=== PATIENT | female | born 1960 | race Caucasian/White ===

== ENCOUNTER 2016-10-11 09:33 | Emergency (ER) | payer SELFPAY ==
[2016-10-11 10:07] VITALS: BP 131/87; TEMP 97.8; O2SAT 98
[2016-10-11] MEDS ORDERED: DEXAMETHASONE INJ 10 MG/ML VIAL IM ONE (10:35)
[2016-10-11] MEDS ORDERED: ORPHENADRINE CITRATE 30 MG/ML AMP IM ONE (10:35)
[2016-10-11] MEDS ORDERED: MORPHINE SULFATE INJ 10 MG/ML VIAL IM ONE (10:36)
--- NOTE | 2016-10-11 10:37 | ED.PDOC ---
History of Present Illness - General Chief Complaint: Lower Extremity Injury Stated Complaint: R leg discomfort Time Seen by Provider: 10/11/16 10:32 Source: patient Exam Limitations: no limitations - History of Present Illness Initial Comments: She stated that her condition started 5 days ago with right sided low back pain stabbing radiating down her back of right thigh Occurred: other - 5 days ago no history of trauma pain progressively getting worse no regular md Pain - Lower Extremity: moderate: Right Thigh/Hip Method of Injury: unknown Improving Factors: nothing Worsening Factors: other - walking standing Allergies/Adverse Reactions: Allergies NO KNOWN ALLERGY Allergy (Verified 10/11/16 09:52) Home Medications: Ambulatory Orders Gabapentin 300 mg PO BID #30 cap 10/11/16 Tramadol HCl 50 mg PO TID PRN #30 tab 10/11/16 predniSONE [Prednisone] 10 mg PO BID #20 tab 10/11/16 Past Medical History (General) - Patient Medical History Hx Stroke: No Hx Congestive Heart Failure: No Hx Diabetes: No - Vaccination History Hx Influenza Vaccination: No Hx Pneumococcal Vaccination: No - Social History Hx Tobacco Use: Yes - Female History Patient is a Female of Child Bearing Age (10 -59 yrs old): No Family Medical History - Family History Mother Family History: No Known Living Status: Hx Family Hypertension: Yes - dad Hx Family Diabetes: Yes - brother Hx Family Cancer: Yes - prostate dad Hx Family;Other: GI BLEED MOM- Physical Exam - Physical Exam General Appearance: Alert, Anxious, No apparent distress Eyes, Ears, Nose, Throat: PERRL/EOMI, normal ENT inspection, TMs normal, pharynx normal Neck: non-tender, full range of motion, supple, normal inspection Cardiovascular/Respiratory: regular rate, rhythm, no M/R/G, normal peripheral pulses, no JVD, normal breath sounds, no respiratory distress Gastrointestinal/Abdominal: non-tender, no organomegaly Back: normal inspection, no CVA tenderness, no vertebral tenderness Thigh/Hip: normal inspection, non-tender, no evidence of injury Leg: normal inspection, non-tender, no evidence of injury, normal ROM Knee: normal inspection, non-tender, no evidence of injury, normal ROM Ankle: normal inspection, non-tender, no evidence of injury DTR - Lower Extremities: 2+: Patellar, left, Patellar, right Neuro/Tendon: normal sensation, normal motor functions, normal tendon functions , responds to pain, no evidence tendon injury, other - positive SLR at 40 degrees right leg Mental Status: alert, oriented x 3, depressed affect Skin: normal color, warm/dry Progress - EKG/XRAY/CT XRAY: lumbar - degenerative disc disease Departure - Departure Clinical Impression: Lumbosacral radiculopathy Time of Disposition: 11:23 Disposition: Discharge to Home or Self Care Condition: Good Departure Forms: ED Discharge - Pt. Copy, Patient Portal Self Enrollment Instructions: DI for Lumbar Radiculopathy Activity: other - no heavy lifting,no bending Prescriptions: Gabapentin 300 mg PO BID #30 cap predniSONE [Prednisone] 10 mg PO BID #20 tab Tramadol HCl 50 mg PO TID PRN #30 tab PRN Reason: Pain Home Medications: Ambulatory Orders Gabapentin 300 mg PO BID #30 cap 10/11/16 Tramadol HCl 50 mg PO TID PRN #30 tab 10/11/16 predniSONE [Prednisone] 10 mg PO BID #20 tab 10/11/16 Additional Instructions: NEED TO SIGN UP WITH PRIMARY MD
--- NOTE | 2016-10-11 11:18 | RAD ---
EXAM DESCRIPTION: X-RAY Lumbar Spine - three views CLINICAL HISTORY: Back pain. COMPARISON: None. TECHNIQUE: Three views of the lumbar spine. FINDINGS: There is no loss of the vertebral body height. Intervertebral disc spaces are well maintained. Mild anterolateral osteophyte formation is seen at L4 and L5 levels. There is no spondylolisthesis. The thoracolumbar and lumbosacral interface is intact. The paravertebral soft tissues are unremarkable. IMPRESSION: Negative for acute findings in the lumbar spine. Mild degenerative change in the lumbar spine, as described above. Electronically signed by: Navarro Gupta MD 10/11/2016 11:15
== END 2016-10-11 11:33 | disposition home or self-care (01) ==
LOC: ER 09:33
DX: M54.17 Radiculopathy, lumbosacral region (principal); Z87.891 Personal history of nicotine dependence
CPT/HCPCS: 72100; J1100; J2270; J2360